=== PATIENT | male | born 1975 | race Caucasian/White ===

== ENCOUNTER → 2016-07-15 | Outpatient (CLI) | payer OTHER ==
--- NOTE | 2016-07-15 11:27 | DX ---
Shoulder Minimum 2 Views Right History: Snowboarding accident. Pain. Comparison exam: None available. Findings: Normal alignment. Joint spaces are maintained. No fracture or dislocation. Impression: Negative right shoulder radiographs.
== END ==
LOC: BMCIMAGING 10:56
PROVIDERS: ATTEND Registered Nurse General Practice
DX: M25.511 Pain in right shoulder (principal); Y93.23 Activity, snow (alpine) (downhill) skiing, snowboarding, sledding, tobogganing and snow tubing